=== PATIENT | female | born 1935 | race Caucasian/White ===

== ENCOUNTER 2018-08-12 14:24 | Emergency (ER) | payer MEDICARE ==
[~2018-08-12] VITALS: Ht 167.6 cm; Wt 74.1 kg
[~2018-08-12 14:24] MED LIST: ACYCLOVIR400 MG PO; ALPH-E400 UNIT PO; AMBIEN5 MG; AMBIEN5 MG PO; ASPIRIN EC81 MG PO; ASPIRIN81 MG OR; CALTRATE PLS OR; CYMBALTA30 MG PO; D32000 UNIT PO; EFFEXOR XR75 MG PO; FOSAMAX PLUS1 TAB PO; LORTAB5 PO; MULTIVITAMI1 PO; OMEPRAZOLE20 M1 PO; OMNI-PAC300 MG PO; OXYBUTYNIN CHLO10 MG PO; PRESERVISION ARED1 PO; SIMVASTATIN10 MG PO; SIMVASTATIN20 MG OR; SINGULAIR10 MG PO; VALIUM2 MG PO; VANCOMYCIN HCL250 MG PO; VITAMIN C1000 MG OR
[2018-08-12] MEDS ORDERED: NOVOLOG MIX100 U/ML SC (15:06)
[2018-08-12] MEDS ORDERED: LIPITOR20 MG PO (15:22)
[2018-08-12] MEDS ORDERED: AUGMENTIN875TAB PO (16:16)
[2018-08-12 16:54] VITALS: BP 173/79
== END 2018-08-12 16:54 | disposition home or self-care (01) ==
LOC: ED 14:24
DX: J02.0 Streptococcal pharyngitis (principal); K21.9 Gastro-esophageal reflux disease without esophagitis

== ENCOUNTER → 2018-09-27 | Outpatient (REF) | payer MEDICARE ==
[~2018-09-27] MED LIST changes: +AUGMENTIN875TAB PO; +LIPITOR20 MG PO; +NOVOLOG MIX100 U/ML SC
== END | disposition home or self-care (01) ==
LOC: MAMMO 09-20 08:46
DX: R92.8 Other abnormal and inconclusive findings on diagnostic imaging of breast (principal)

== ENCOUNTER 2021-04-19 09:35 | Outpatient (REF) | payer MEDICARE | END 2021-04-19 11:41 | disposition home or self-care (01) | LOC: INF 09:35 | PROVIDERS: ATTEND Internal Medicine | DX: M81.0 Age-related osteoporosis without current pathological fracture (principal) | CPT/HCPCS: J0897 ==

== ENCOUNTER 2021-10-07 17:12 | Emergency (ER) | payer MEDICARE | END 2021-10-07 18:42 | disposition left against medical advice (07) | LOC: ED 17:12 → LWOBS 18:42 | DX: Z53.21 Procedure and treatment not carried out due to patient leaving prior to being seen by health care provider (principal) ==